=== PATIENT | male | born 1990 | race Caucasian/White ===

== ENCOUNTER 2020-02-02 02:51 | Outpatient (CLI) | payer MEDICAID | END 2020-02-02 02:52 | disposition left against medical advice (07) | LOC: EMS 02:51 | PROVIDERS: ATTEND Surgery | DX: S90.822A Blister (nonthermal), left foot, initial encounter (principal); S90.821A Blister (nonthermal), right foot, initial encounter; X31.XXXA Exposure to excessive natural cold, initial encounter; Y93.01 Activity, walking, marching and hiking ==

== ENCOUNTER 2020-02-02 03:19 | Emergency (ER) | payer MEDICAID ==
[2020-02-02] MEDS ORDERED: BACITRACIN ZINC OINT 1 PACKET TOP STA (05:06)
--- NOTE | 2020-02-02 05:17 | ED Physician Documentation ---
History of Present Illness - Stated complaint Stated Complaint: RT FOOT PX - Chief complaint Chief Complaint: Ext Problem - History obtained from History obtained from: Patient - Additonal information Additional information: Patient comes emergency department complaining of pain on the soles of his feet after walking for a couple hours barefoot after getting into an argument with his brother. Patient states that he finally stopped and called 911 because his feet were really starting to hurt and it was very cold outside. Patient states that he generally got warm while riding in the please car to our emergency department, but states that the toes of his left foot still feel cold. No other complaints or injuries. Patient denies intoxication this evening. Review of Systems Ten Systems: 10 systems reviewed and negative Constitutional: reports: Reviewed and negative Eyes: reports: Reviewed and negative Ears: reports: Reviewed and negative Nose: reports: Reviewed and negative Throat: reports: Reviewed and negative Cardiac: reports: Reviewed and negative Respiratory: reports: Reviewed and negative GI: reports: Reviewed and negative : reports: Reviewed and negative Skin: reports: Reviewed and negative Musculoskeletal: reports: Extremity pain Neurologic: reports: Reviewed and negative Psychiatric: reports: Reviewed and negative Endocrine: reports: Reviewed and negative Immunocompromised: reports: Reviewed and negative PD PAST MEDICAL HISTORY - Past Medical History Past Medical History: No - Past Surgical History Past Surgical History: No - Present Medications Home Medications: Ambulatory Orders Medication Instructions Recorded Confirmed No Known Home Medications 02/02/20 02/02/20 - Allergies Allergies/Adverse Reactions: Allergies Allergy/AdvReac Type Severity Reaction Status Date / Time No Known Drug Allergies Allergy Verified 02/02/20 04:02 - Social History Does the pt smoke?: Yes Smoking Status: Current every day smoker Does the pt drink ETOH?: Yes Does the pt have substance abuse?: No - Immunizations Immunizations are current?: Yes PD ED PE NORMAL - Vitals Vital signs reviewed: Yes - General General: Alert and oriented X 3, No acute distress - HEENT HEENT: Atraumatic, PERRL, EOMI, Moist mucous membranes - Neck Neck: Supple, no meningeal sign - Cardiac Cardiac: RRR, No murmur, Strong equal pulses - Respiratory Respiratory: No respiratory distress, Clear bilaterally - Derm Derm: Other (L lateral 3 toes cold, but intact sensation. Mild pallor.No skin breakage. Plantar surface of sushila. feet diffusely tender, but warm and pink. 2 hemorrhagic bullae/foot.) - Extremities Extremities: No deformity, No edema, Other (Diffuse plantar tenderness to pa lpation. See skin description above. No foreign body or laceration.) - Neuro Neuro: Alert and oriented X 3 - Psych Psych: Normal mood, Normal affect Results - Vitals Vitals: Vital Signs - 24 hr 02/02/20 02/02/20 02/02/20 03:40 05:45 06:04 Temperature 37.1 C 36.9 C 36.9 C Heart Rate 144 H 102 H 102 H Respiratory 18 16 16 Rate Blood Pressure 110/72 112/73 112/73 O2 Saturation 94 97 97 Oxygen O2 Source Room air PD MEDICAL DECISION MAKING - ED course Complexity details: considered differential, d/w patient ED course: The patient's feet were cold, but sensation was intact and I felt the patient had sustained frostnip and some soft tissue traumatization and inflammation from excessive walking on bare feet, especially in the cold. I had nursing staff placed the patient's feet in the hottest bath he could tolerate and this was replaced with another hot bath when it cooled down. The patient's toes did warm up and after cleaning the patient's hemorrhagic bullae, bacitracin was placed and Kerlix bandages. The patient did have shoes with him at this point. The patient was deemed stable for discharge home. He has been living with his brother and states that his brother will take him back if he wants to go back; however, patient is not sure if he wants to go back with his brother or not. He has been given resources for shelters and other housing assistance in the community. We have discussed the usual indications for return. Departure - Departure Disposition: 01 Home, Self Care Clinical Impression: Frostnip Qualifiers: Encounter type: initial encounter Qualified Code(s): T33.90XA - Superficial frostbite of unspecified sites, initial encounter Condition: Stable Instructions: ED Frostnip Cold Injury Comments: Some of your toes and your foot show evidence of frostnip, of a chilling of the tissues without actual damage as in frostbite. You have good sensation in all of these areas, which indicates that you have not had a significant cold injury to your toes or foot. The combination of cold and of walking barefoot for an extended distance may cause pain and inflammation, which you have experienced, and has also caused some blood blisters on the soles of your feet; however, you should recover from this without long-term damage. You may use ibuprofen and Tylenol to help with the discomfort. Your feet have been soaked and the open blisters treated with antibiotic ointment today. Keep the bandages on until your blisters have been able to dry up. You should not walk without shoes outside while your blisters are healing, and should have either the gauze or socks in place when walking inside. You will need to determine where what you prefer as far as her living situation and unfortunately, the emergency department cannot do that for you. However, we have provided you with living assistance resources, including senior living information, should you need it. Discharge Date/Time: 02/02/20 06:05
[2020-02-02 06:03] VITALS: BP 112/73
== END 2020-02-02 06:05 | disposition home or self-care (01) ==
LOC: ED 03:19
DX: T33.822A Superficial frostbite of left foot, initial encounter (principal); T33.821A Superficial frostbite of right foot, initial encounter; X31.XXXA Exposure to excessive natural cold, initial encounter; Y93.01 Activity, walking, marching and hiking; F17.200 Nicotine dependence, unspecified, uncomplicated
CPT/HCPCS: 99282; A9270